=== PATIENT | female | born 2000 | race Caucasian/White ===

== ENCOUNTER 2023-11-29 07:30 | Day surgery (SDC) | payer OTHER ==
[~2023-11-29] VITALS: Ht 170.2 cm; Wt 60.3 kg
[2023-11-29 07:27] LABS: HCG,QUAL RESULT NEGATIVE (NEGATIVE)
[~2023-11-29 07:30] MED LIST: CEFAZOLIN SOD 2 GM in D5W 50 ML IV ONE
[2023-11-29] MEDS ORDERED: PROPOFOL 200MG/ 20ML VIAL (DIPRIVAN) IV ONE (07:37)
[2023-11-29] MEDS ORDERED: SUGAMMADEX SODIUM 200 MG/2 ML VIAL IV ONE (07:37)
[2023-11-29] MEDS ORDERED: LIDOCAINE 2%, 20 ML MDV ONE (07:37)
[2023-11-29] MEDS ORDERED: KETOROLAC TROMETHAMINE 30 MG VIAL ONE (07:37)
[2023-11-29] MEDS ORDERED: fentaNYL CITRATE/PF 100 MCG/2 ML AMP ONE (07:37)
[2023-11-29] MEDS ORDERED: MIDAZOLAM HCL/PF 2 MG/2 ML SYRINGE ONE (07:37)
[2023-11-29] MEDS ORDERED: DEXAMETHASONE SOD PHOSPHATE 4 MG/ML VIAL ONE (07:37)
[2023-11-29] MEDS ORDERED: ONDANSETRON HCL 4 MG/2 ML VIAL ONE ×2 (07:37→13:37)
[2023-11-29] MEDS ORDERED: ISOFLURANE 15 MIN GAS INH ONE (07:37)
[2023-11-29] MEDS ORDERED: ROCURONIUM BROMIDE 10 MG/ML (ZEMURON) ONE (07:37)
[2023-11-29] MEDS ORDERED: LR 1,000 ML IV.SOLN IV ONE (07:37)
[2023-11-29] MEDS ORDERED: NS IRRIG SOLN 1000 ML IR ONE (07:37)
[2023-11-29] MEDS ORDERED: LIDOCAINE/EPI 1% 1:100000 20 ML VIAL ONE (07:37)
[2023-11-29] MEDS ORDERED: NS 1000 ML IV.SOLN IV ONE (07:37)
[2023-11-29] MEDS ORDERED: ACETAMINOPHEN I.V. 1000 MG 100 ML IV ONE (08:26)
[2023-11-29] MEDS ORDERED: MEPERIDINE HCL/PF 25 MG/ML DISP.SYRIN IVP PRN (08:30)
[2023-11-29] MEDS ORDERED: MIDAZOLAM HCL 2 MG/2 ML VIAL (VERSED) IVP PRN (08:30)
[2023-11-29] MEDS ORDERED: METOCLOPRAMIDE HCL 10 MG/2 ML VIAL IVP PRN (08:30)
[2023-11-29] MEDS ORDERED: LR 1,000 ML IV SCH (08:30)
[2023-11-29] MEDS ORDERED: HYDROmorphone 1 MG/ML INJ. CARTRIDGE IVP PRN ×2 (08:30)
[2023-11-29 08:39] VITALS: O2SAT 99
[2023-11-29] MEDS ORDERED: NALOXONE HCL 0.4 MG/ML AMP (NARCAN) IVP PRN (09:45)
[2023-11-29] MEDS ORDERED: HYDROcodone/ACETAMIN 5-325 MG TAB (NORCO/ VICODIN) PO PRN (09:45)
[2023-11-29] MEDS ORDERED: OXYCODONE/ACETAMINOPHEN 5-325 TABLET PO PRN ×2 (09:45)
[2023-11-29] MEDS ORDERED: ONDANSETRON HCL 4 MG/2 ML VIAL IVP PRN (09:45)
[2023-11-29] MEDS ORDERED: HYDROmorphone 1 MG/ML INJ. CARTRIDGE ONE (11:31)
[2023-11-29] MEDS ORDERED: SIMETHICONE 80 MG TAB.CHEW PO SCH (13:00)
[2023-11-29] MEDS ORDERED: CEFAZOLIN 2 GM IVPB PREMIX 50 ML IV ONE (14:00)
[2023-11-29 14:42] VITALS: BP_SYST 124; PULSE 61; RESP 18
[2023-11-29] MEDS ORDERED: ceFAZolin SODIUM 2 GM in D5W 100 ML IV SCH (22:00)
== END 2023-11-29 15:05 | disposition home or self-care (01) ==
LOC: EDSTATUS 07:30 → UNDOADMOB 07:30 → EDSTATUS 07:30 → SDS 07:30 → SMU 07:30 → UNDOADMOB 07:31 → SMU 07:31 → PREINTOOBSV 13:43 → UNDODISIN 15:05 → SDS 15:05
PROVIDERS: ATTEND Specialist
DX: N94.6 Dysmenorrhea, unspecified (principal); N83.202 Unspecified ovarian cyst, left side; N83.201 Unspecified ovarian cyst, right side; I48.91 Unspecified atrial fibrillation
CPT/HCPCS: 87081; 58662; 64488; 84703; 88305; J3490; J0690 ×2; J1100; J1885; J2001; J3465; J2405; J2704; J3010; J1170; J7060; J7120; J7030; C1727; J0131; S2900